=== PATIENT | female | born 1955 | race Caucasian/White ===

== ENCOUNTER 2016-10-20 09:51 | Emergency (ER) | payer OTHER ==
[~2016-10-20] VITALS: Ht 157.5 cm; Wt 88.2 kg
[2016-10-20 10:01] VITALS: Ht 157.5 cm; Wt 88.2 kg
[2016-10-20] MEDS ORDERED: TRAM50TA2 PO (10:56)
[2016-10-20] MEDS ORDERED: CYCL-319 PO (10:56)
--- NOTE | 2016-10-20 12:30 | ERD ---
DATE OF SERVICE: 10/20/2016 HISTORY OF PRESENT ILLNESS: The patient is a 60-year-old female coming in complaining of right-side d leg pain that radiates down her leg. Patient states it is worse with walking. She has no numbnes s or weakness. She has had no falls. She has taken naproxen with no alleviation of her symptoms. Denies any change in urination or bowel movement. No abdominal pain. PAST MEDICAL HISTORY: Prediabetic. ALLERGIES: DENIES ALLERGIES TO MEDICATIONS. PAST SURGICAL HISTORY: Denies. SOCIAL HISTORY: Denies. REVIEW OF SYSTEMS: A 12-point review of systems was done. Refer to HPI for positives, all other sy stems negative. PHYSICAL EXAMINATION VITAL SIGNS: Temperature is 98.7, pulse 81, blood pressure 123/67, respiratory 18, O2 sat 95% on ro om air. Pain intensity is 0/10. GENERAL: The patient is well-appearing, well-nourished, no acute distress. HEENT: Atraumatic. Conjunctivae are pink. Pupils equal, round, and reactive to light. There is no s cleral icterus. Tympanic membranes clear bilaterally. Oropharynx clear. No nystagmus or photophobia . CHEST: Clear to auscultation bilaterally. There are no rales, wheezes or rhonchi. HEART: Regular rate and rhythm. No murmurs, clicks, rubs or gallops. No S3 or S4. BACK: No midline or flank tenderness. EXTREMITIES: The patient has tenderness to palpation over the right sciatic distribution. There is no swelling noted to the extremities. NEURO: Alert and oriented. Cranial nerves 2-12 intact. Motor strength in all 4 extremities with 5/5 strength. Sensation grossly intact. Normal speech and gait. Babinski negative. DTR 2+ throughout. SKIN: There is no apparent rash or petechia. The skin is warm and dry. HEMATOLOGIC AND LYMPHATIC: There is no evidence of excessive bruising or lymphedema. No gross cervi justine, axillary, or inguinal lymphadenopathy. PSYCHIATRIC: The patient does not appear anxious or depressed. Normal orientation and judgment. EXTREMITIES: DIAGNOSIS: Sciatica. MEDICAL DECISION MAKING: I have low suspicion for DVT, low suspicion for cauda equina, diskitis or epidural abscess. Low suspicion for acute abdomen radiating to the back and low suspicion for bony injuries. DISCHARGE: The patient is discharged stable. Patient given a prescription for tramadol and told to continue taking other medications as previously prescribed by physician. The patient was also give n prescription for Flexeril. All other questions answered at time of discharge. Discharge summary given at the time of departure. Patient understood and complied with plan. Dictated By: CHRISTINA VILLALBA for CHELSEY WHALEN/ANIKA Conf#: [id number] DID#: [id number]
== END 2016-10-20 11:00 | disposition home or self-care (01) ==
LOC: FTE 09:51
DX: M54.32 Sciatica, left side (principal); I10 Essential (primary) hypertension; E03.9 Hypothyroidism, unspecified
CPT/HCPCS: 99284

== ENCOUNTER 2017-03-25 05:53 | Day surgery (SDC) | payer OTHER ==
[~2017-03-25] VITALS: Ht 144.8 cm; Wt 85.1 kg
[~2017-03-25 05:53] MED LIST: CYCL-319 PO; TRAM50TA2 PO
[2017-03-25 06:51] VITALS: Ht 144.8 cm; Wt 85.1 kg
[2017-03-25] MEDS ORDERED: METOPROLOL (07:16)
[2017-03-25] MEDS ORDERED: ASPIRIN (07:16)
[2017-03-25] MEDS ORDERED: OMEPRAZOLE (07:16)
[2017-03-25] MEDS ORDERED: LEVOXYL (07:16)
[2017-03-25] MEDS ORDERED: LOSARTAN (07:16)
[2017-03-25 07:29] VITALS: BP 135/81; PULSE 80; RESP 18
[2017-03-25] MEDS ORDERED: LIDOCAINE 2% (SDV) 5 ML INJ ONE (07:47)
[2017-03-25] MEDS ORDERED: PROPOFOL 60 ML ONE (07:47)
--- NOTE | 2017-03-25 08:14 | OPPN ---
Date/Time of Note Date/Time of Note DATE: 03/25/17 TIME: 08:13 Operative Report Preoperative Diagnosis Abdominal pain chronic heartburn screening colonoscopy Postoperative Diagnosis Large hiatal hernia and gastroesophageal reflux disease Bile reflux gastritis Diverticulosis of the colon Internal hemorrhoids Operation/Procedure Performed Esophagogastroduodenoscopy and biopsy Colonoscopy Anesthesia: MAC Estimated blood loss: none Complications: None ARNIE DESAI MD Mar 25, 2017 08:14
[2017-03-25 08:41] VITALS: BP 100/66; PULSE 70; RESP 24
--- NOTE | 2017-03-25 08:53 | GILP ---
DATE OF PROCEDURE: 03/25/2017 PROCEDURE PERFORMED: 1. Esophagogastroduodenoscopy and biopsy. 2. Colonoscopy. SURGEON: Dr. Mock. PREOPERATIVE DIAGNOSES: 1. Abdominal pain. 2. Chronic heartburn. 3. Screening colonoscopy. POSTOPERATIVE DIAGNOSES: 1. Large hiatal hernia. 2. Gastroesophageal reflux disease. 3. Gastritis with erosions. 4. Gastric mucosal biopsies were taken for Helicobacter pylori test. 5. Colonoscopy all the way to the cecum. 6. Diverticulosis of the colon. 7. Internal hemorrhoids. 8. No colon neoplasm was identified. INDICATION: Ms. Leanna Upton is a 61-year-old female patient who had upper abdominal pain and chronic heartburn not responding to therapy. The patient also needed a screening colonoscopy. The procedures and possible complications were well explained to the patient. The patient understood and consented to the procedure. DESCRIPTION OF PROCEDURE: Under influence of anesthesia, the gastroscope was carefully introduced into the esophagus, and under direct vision, it was advanced to the stomach into the pylorus into the duodenal bulb, and descending duodenum. FINDINGS: Esophagus: Patient had a large hiatal hernia and gastroesophageal reflux disease. Stomach: She had bile reflux gastritis with erosions. Gastric mucosal biopsies were taken for H pylori test. Duodenum was normal. The colonoscope was carefully introduced in the rectum, and under direct vision, it was advanced all the way to the cecum. FINDINGS: The patient had diverticulosis of the colon. She also had internal hemorrhoids. No colon neoplasm was identified. The patient tolerated the procedures very well. There was no complication from the procedures. At the end of procedure, she was awake with stable vital signs and she was discharged home in the care of her family. IMPRESSION: Please see postop diagnoses. PLAN: 1. Continue omeprazole. 2. Add Carafate 1 g p.o. t.i.d. in the morning. 3. Await H pylori test report. 3.1. Next screening colonoscopy in 10 years. Dictated By: MD MATEO Barry/meek/marifer /Document#: [id number] CC: Juventino Mock MD;*EndCC*
== END 2017-03-25 10:38 | disposition home or self-care (01) ==
LOC: GIL 05:53
PROVIDERS: ATTEND Internal Medicine Gastroenterology
DX: Z12.11 Encounter for screening for malignant neoplasm of colon (principal); K44.9 Diaphragmatic hernia without obstruction or gangrene; K21.9 Gastro-esophageal reflux disease without esophagitis; K29.60 Other gastritis without bleeding; K57.90 Diverticulosis of intestine, part unspecified, without perforation or abscess without bleeding; K64.8 Other hemorrhoids; I10 Essential (primary) hypertension; E03.9 Hypothyroidism, unspecified; E66.9 Obesity, unspecified; Z68.41 Body mass index [BMI] 40.0-44.9, adult
CPT/HCPCS: 43239; 45378; 87081; Z7610

== ENCOUNTER 2018-02-11 13:18 | Emergency (ER) | END 2018-02-11 15:14 | disposition home or self-care (01) ==